=== PATIENT | male | born 1970 | race Caucasian/White ===

== ENCOUNTER 2020-01-17 10:09 | Emergency (ER) | payer SELFPAY ==
[2020-01-17 10:26] VITALS: BP 118/84; PULSE 78
--- NOTE | 2020-01-17 11:31 | EDM.PDOC ---
ED HPI GENERAL MEDICAL PROBLEM - General Chief Complaint: General Stated Complaint: STOMACH ACHE, MUSCLE/JOINT PAIN Time Seen by Provider: 01/17/20 10:35 Source of Information: Reports: Patient History Limitations: Reports: No Limitations - History of Present Illness INITIAL COMMENTS - FREE TEXT/NARRATIVE: 49-year-old male comes in with persistent weakness and generalized malaise. He has been exposed to many tick bites earlier this year and is concerned about tickborne disease. He was seen in the [place] [facility] yesterday, had a fairly thorough work-up was done and he received 2 L of fluid. No fevers or chills. He has some diarrhea but no vomiting, he does have decreased appetite and malaise. No rashes. He was not feeling any better today so he called and was told to return to the emergency room, he wanted to come here because he had gastric bypass here. We did get the records from [place]. They did receive a stool sample and check for C. difficile which was negative, other cultures are still pending. The rest of his labs look reassuring including a normal white count, electrolytes and renal function. Onset: Gradual Duration: Week(s): (Symptoms have been ongoing for several weeks) Location: Reports: Generalized Associated Symptoms: Reports: Malaise, Weakness, Other (Generalized body aches, joint pains, diarrhea). Denies: Fever/Chills, Headaches denies Pain Score (Numeric/FACES): 1 - Related Data Allergies Allergy/AdvReac Type Severity Reaction Status Date / Time No Known Allergies Allergy Verified 01/17/20 10:23 Home Meds: Home Meds Multivitamin [Multi-Vitamin Daily] 1 mg PO DAILY 08/18/15 [History] Magnesium Hydroxide [Milk of Magnesia] 30 ml PO DAILY PRN #2 ml 03/04/16 [Rx] Cyanocobalamin (Vitamin B-12) [Cyanocobalamin Injection] 1,000 mcg IJ ASDIRECTED 01/17/20 [History] Past Medical History Cardiovascular History: Reports: High Cholesterol, Hypertension Other Cardiovascular History: BBB Respiratory History: Reports: Bronchitis, Recurrent, Pneumonia, Recurrent, Sleep Apnea Gastrointestinal History: Reports: Chronic Constipation Musculoskeletal History: Reports: Fracture Other Musculoskeletal History: distal bicep repair right arm. Psychiatric History: Reports: Depression Dermatologic History: Reports: Psoriasis - Infectious Disease History Infectious Disease History: Reports: Chicken Pox, Shingles - Past Surgical History GI Surgical History: Reports: Bariatric Procedure, Cholecystectomy Social & Family History - Family History HEENT: Reports: None Cardiac: Reports: Heart Failure, Hypertension GI: Reports: Cholelithiasis, Pancreatitis Oncologic: Reports: Colon - Tobacco Use Smoking Status *Q: Never Smoker - Recreational Drug Use Recreational Drug Use: No ED ROS GENERAL - Review of Systems Review Of Systems: See Below Constitutional: Reports: Malaise, Decreased Appetite. Denies: Fever, Chills Respiratory: Denies: Shortness of Breath Cardiovascular: Denies: Chest Pain GI/Abdominal: Reports: Decreased Appetite. Denies: Abdominal Pain, Nausea, Vomiting Musculoskeletal: Reports: Muscle Pain Skin: Reports: No Symptoms. Denies: Rash Neurological: Denies: Headache Psychiatric: Reports: No Symptoms Hematologic/Lymphatic: Denies: Anemia ED EXAM, GENERAL - Physical Exam Exam: See Below Exam Limited By: No Limitations General Appearance: Alert, No Apparent Distress Eye Exam: Bilateral Eye: Normal Inspection (No jaundice, hydration looks good) Throat/Mouth: Normal Inspection Head: Atraumatic Respiratory/Chest: No Respiratory Distress, Lungs Clear Cardiovascular: Regular Rate, Rhythm. No: Tachycardia GI/Abdominal: Soft, Non-Tender Extremities: Normal Inspection. No: Pedal Edema Neurological: Alert, Oriented Psychiatric: Normal Affect, Normal Mood Skin Exam: Warm, Dry Course - Vital Signs Last Recorded V/S: Last Vital Signs Temp 97.2 F 01/17/20 10:25 Pulse 78 01/17/20 10:25 Resp 16 01/17/20 10:25 BP 118/84 01/17/20 10:25 Pulse Ox 97 01/17/20 10:25 - Orders/Labs/Meds Orders: Active Orders 24 hr Category Date Time Status BABESIA MICROTI ANTIBODY PANEL Urgent Lab 01/17/20 10:59 Received HUMAN GRANULOCYTIC JOSE-HGE Urgent Lab 01/17/20 10:59 Received LYME, TOTAL AB TEST/REFLEX Urgent Lab 01/17/20 10:59 Received - Re-Assessments/Exams Free Text/Narrative Re-Assessment/Exam: 01/17/20 11:37 Reviewed all the labs and work-up from yesterday, nothing needs to be repeated today. We did add tick borne disease labs and the patient had a strong desire to start on doxycycline pending results. He was given a prescription for 20 doxycycline to take twice daily, if results are positive he will refill x1. I will be in touch with him with the results next week when available and he can return if worsening despite treatment. Departure - Departure Time of Disposition: 11:35 Disposition: Home, Self-Care 01 Clinical Impression: Weakness, Myalgia - Discharge Information Instructions: Weakness, [id number] Referrals: PCP,None [Primary Care Provider] - Forms: ED Department Discharge Care Plan Goals: Take doxycycline twice daily for 10 days as directed, refill if you are test become positive which we will inform you next week. Return if worsening such as persistent fevers or increased pain. Stay hydrated with frequent fluids. Sepsis Event Note - Evaluation Sepsis Screening Result: No Definite Risk - Focused Exam Vital Signs: Vital Signs Temp Pulse Resp BP Pulse Ox 01/17/20 10:25 97.2 F 78 16 118/84 97 Date Exam was Performed: 01/17/20 Time Exam was Performed: 11:35 - My Orders Last 24 Hours: My Active Orders 01/17/20 10:59 BABESIA MICROTI ANTIBODY PANEL Urgent HUMAN GRANULOCYTIC JOSE-HGE Urgent LYME, TOTAL AB TEST/REFLEX Urgent - Assessment/Plan Last 24 Hours: My Active Orders 01/17/20 10:59 BABESIA MICROTI ANTIBODY PANEL Urgent HUMAN GRANULOCYTIC JOSE-HGE Urgent LYME, TOTAL AB TEST/REFLEX Urgent
[2020-01-19 11:08] LABS: LYME IGG/IGM AB <0.91 ISR (0.00-0.90)
[2020-01-21 14:10] LABS: HGE IGG TITER Negative (Neg:<1:64); HGE IGM TITER Negative (Neg:<1:20)
[2020-01-21 16:09] LABS: BABESIA MICROTI IGG <1:10 (Neg:<1:10); BABESIA MICROTI IGM <1:10 (Neg:<1:10)
== END 2020-01-17 11:36 | disposition home or self-care (01) ==
LOC: JP.ED 10:09
DX: R53.1 Weakness (principal); M79.10 Myalgia, unspecified site; I10 Essential (primary) hypertension
CPT/HCPCS: 36415; 86618; 86666; 86753; 99284